=== PATIENT | female | born 1990 | race Caucasian/White ===

== ENCOUNTER 2022-06-25 18:13 | Emergency (ER) | payer MEDICAID, SELFPAY ==
[~2022-06-25 18:13] MED LIST: Iopamidol 370 76% 100 ML VIAL ONE
[2022-06-25] MEDS ORDERED: Sodium Chloride 0.9% 1,000 ML ONE (18:59)
[2022-06-25] MEDS ORDERED: Fentanyl 100 MCG/2 ML VIAL ONE ×3 (18:59→21:46)
[2022-06-25 19:20] LABS: Hemoglobin 12.2 g/dL (12.0-16.0); MDiff Complete? YES; Manual Diff?? YES; Mean Corpuscular HGB CONC 33.3 g/dL (32.0-36.0); Mean Corpuscular Hemoglobin 28.8 pg (27.0-31.0); Mean Corpuscular Volume 86.7 fl (78.0-98.0); Mean Platelet Volume 7.1 fL (7.4-10.4); Platelet Count 296 10x3/uL (130-400); Red Blood Cell (RBC) Count 4.24 mill/uL (4.20-5.40)
[2022-06-25 19:25] LABS: Bilirubin Moderate (Negative); Blood, Urine Large (Negative); Clarity Clear (Clear); Glucose, Urine (Dipstick) Negative (Negative); Ketone, Urine Trace mg/dL (Negative); Leukocyte Trace (Negative); Nitrite Negative (Negative); Protein, Urine (Dipstick) 100 mg/dL (Neg-Trace); Specific Gravity, Urine 1.025 (1.005-1.030); pH, Urine 5.5 (5.0-9.0)
[2022-06-25 19:27] LABS: ALT (SGPT) 90 U/L (8-55); AST (SGOT) 55 U/L (5-34); Albumin 3.9 g/dL (3.5-5.0); Alkaline Phosphatase 157 U/L (40-110); Anion Gap 15 mmol/L (10-20); BUN (Urea Nitrogen) 12 mg/dL (7.0-18.7); Band 8 % (5-11); Bilirubin, Total 1.8 mg/dL (0.2-1.2); Calc. Creatinine Clearance 0 mL/min (70-130); Calcium 9.7 mg/dL (7.8-10.44); Carbon Dioxide 20 mmol/L (22-29); Chloride 104 mmol/L (98-107); Estimated GFR 81; Globulin 4.3 g/dL (2.4-3.5); Glucose 132 mg/dL (70-105); Lymphocytes 2 % (21-51); Monocytes 2 % (0-10); Neutrophil 88 % (42-75); Platelet Morphology Comment Appears Adequate; Protein, Total 8.2 g/dL (6.0-8.3); Sodium 136 mmol/L (136-145)
[2022-06-25 19:33] LABS: Pregnancy Test - Urine (BHCG) Negative (Negative); Pregu Control Bar Appear? YES (CONTROL BAR); Specific Gravity 1.025 (1.002-1.036)
[2022-06-25 19:34] LABS: Bacteria/HPF 3+ HPF (None Seen); Pregu Control Background? CLEAR/WHITE (CLR/WHITE); RBC/HPF 21-50 HPF (0-3)
[2022-06-25 19:35] LABS: Mucous/LPF 2+ LPF (<2+)
[2022-06-25] MEDS ORDERED: Potassium Chloride 20 MEQ TAB ONE (19:52)
[2022-06-25] MEDS ORDERED: Sodium Chloride 0.9% 100 ML ONE (20:45)
[2022-06-25] MEDS ORDERED: cefTRIAXone (ROCEPHIN) 1 GM VIAL ONE (20:45)
[2022-06-25] MEDS ORDERED: metroNIDAZOLE 500 MG/100 ML BAG ONE (21:36)
== END 2022-06-25 22:03 | disposition short-term general hospital (02) ==
LOC: NAV ERS 18:13
DX: N83.8 Other noninflammatory disorders of ovary, fallopian tube and broad ligament (principal)
CPT/HCPCS: 36415; 74177; 80053; 81003; 81015; 81025; 83605; 85025; 96365; 96375; 96376; J0696; J3010; J3490; J7050; Q9967

== ENCOUNTER 2023-02-22 07:45 | Emergency (ER) | payer MEDICAID ==
[2023-02-22 09:09] LABS: #Eosinphils 0.2 thou/uL (0.0-0.7); #Lymphocytes 1.9 thou/uL (1.20-3.40); #Monocytes 0.8 thou/uL (0.11-0.59); #Neutrophils 9.7 thou/uL (1.40-6.50); %Basophils 0.3 % (0.0-1.0); %Eosinophils 1.2 % (0.0-10.0); %Lymphocytes 15.4 % (21.0-51.0); %Monocytes 6.4 % (0.0-10.0); %Neutrophils 76.7 % (42.0-75.0); Hematocrit 38.5 % (36.0-47.0); Hemoglobin 12.8 g/dL (12.0-16.0); Mean Corpuscular HGB CONC 33.3 g/dL (32.0-36.0); Mean Corpuscular Hemoglobin 28.9 pg (27.0-31.0); Mean Corpuscular Volume 86.9 fl (78.0-98.0); Mean Platelet Volume 7.7 fL (7.4-10.4); Platelet Count 275 10x3/uL (130-400); RBC Distribution Width 12.1 % (11.5-14.5); Red Blood Cell (RBC) Count 4.44 mill/uL (4.20-5.40); White Blood Cell (WBC) Count 12.6 10x3/uL (4.8-10.8)
[2023-02-22 09:15] LABS: BHCG - Serum POSITIVE (NEGATIVE); Pregs Control Bar Appear? YES (CONTROL BAR)
[2023-02-22 09:27] LABS: Bilirubin Negative (Negative); Blood, Urine Large (Negative); Clarity Clear (Clear); Glucose, Urine (Dipstick) Negative (Negative); Ketone, Urine Negative (Negative); Leukocyte Negative (Negative); Nitrite Negative (Negative); Protein, Urine (Dipstick) Negative (Neg-Trace); Specific Gravity, Urine 1.015 (1.005-1.030); Urobilinogen 0.2 mg/dL (Less than 2)
[2023-02-22 09:37] LABS: Bacteria/HPF Rare-Few HPF (None Seen); CAUTI Indications for Culture Dysuria,urgency,freq; RBC/HPF 21-50 HPF (0-3); Squamous Epithelial 0-3 HPF (0-3); WBC/HPF 0-3 HPF (0-3)
[2023-02-22 09:39] LABS: Urine Culture Reflex No No
== END 2023-02-22 11:00 | disposition short-term general hospital (02) ==
LOC: NAV ERS 07:45
DX: O20.8 Other hemorrhage in early pregnancy (principal); Z3A.09 9 weeks gestation of pregnancy; Z87.891 Personal history of nicotine dependence
CPT/HCPCS: 81001; 84702; 84703; 85025; 86900; 86901; 99284